=== PATIENT | male | born 1990 | race Caucasian/White ===

== ENCOUNTER 2017-04-21 10:59 | Emergency (ER) | payer OTHER ==
[2017-04-21 11:07] VITALS: RESP 15; TEMP 97.5
--- NOTE | 2017-04-21 11:14 | EDPHY ---
H & P Stated Complaint: skiing 2 days ago 8 ft jump landed flat pain r heel Time Seen by Provider: 04/21/17 11:13 HPI/ROS: HPI: This is a 26-year-old male presents with Chief Complaint: skiing 2 days ago 8 ft jump landed flat pain r heel Location: Right heel Quality: Injury Duration: 2 days ago Signs and Symptoms: No bleeding, no radiation, no numbness, no weakness, no tingling, no incontinence, no decreased range of motion, no swelling, + pain Timing: Sudden, worse with weight-bearing Severity: Mild Context: Patient is generally healthy, was skiing in [place], [place] last week when he went off a jump and landed directly on the right heel taking the majority of the force. He felt immediate, constant pain that gradually wore off throughout the day. He was able to continue skiing for the remaining 4 hr. Who reports that he has noticed over the last 1-2 days, mild discomfort that is nonradiating in nature when he puts weight directly on his right heel. Denies any paresthesias/swelling/skin color changes. Patient asking for an x- ray to rule out heel fracture. He is not taking any [id number] medications or applied ice. Modifying Factors: None Comment: ROS: see HPI Constitutional: No fever, no chills, no weight loss Eyes: No blurred vision Respiratory: No shortness of breath, no cough Cardiovascular: No chest pain Gastrointestinal: No nausea, no vomiting no diarrhea Genitourinary: No dysuria Extremities: No myalgias Neurologic: No weakness, no numbness Skin: No rashes Hematologic: No bruising, no bleeding MEDICAL/SURGICAL/SOCIAL HISTORY: Medical history: antithrombin 3 blood disorder/psoriasis Surgical history: Denies Social history: Worse as second grade teacher. CONSTITUTIONAL: awake and alert, no obvious distress HEENT: Atraumatic and normocephalic, PERRL, EOMI. Tympanic membranes clear. Oropharynx clear, no exudate and moist pink mucosa. Airway patent. No lymphadenopathy. No meningismus. Cardiovascular: Normal S1/S2, regular rate, regular rhythm, without murmur rub or gallop. PULMONARY/CHEST: Symmetrical and nontender. Clear to auscultation bilaterally. Good air movement. No accessory muscle usage. ABDOMEN: Soft, nondistended, nontender, no rebound, no guarding, no peritoneal signs, no masses or organomegaly. No CVAT. EXTREMITIES: 2/2 DP and PT pulses, strength 5/5, right Ankle: Plantar flexion to 50, dorsiflexion to 20. Foot inversion to 35 degree. No tenderness/ swelling Anterior talofibular ligament. No tenderness/swelling Calcaneofibular ligament, no tenderness/swelling posterior talofibular ligament, no tenderness/ swelling posterior inferior tibiofibular ligament. Achilles tendon intact. Right Calcaneus; + pinpoint tenderness with palpation directly on the lateral aspect. No effusion/ecchymosis/swelling appreciated. no deformities, no clubbing, no cyanosis or edema. NEUROLOGICAL: no focal neuro deficits. GCS 15. SKIN: Warm and dry, no erythema. no rash. Good capillary refill. Source: Patient Exam Limitations: No limitations - Personal History Current Tetanus/Diphtheria Vaccine: Yes - Medical/Surgical History Hx Asthma: No Hx Chronic Respiratory Disease: No Hx Diabetes: No Hx Cardiac Disease: No Hx Renal Disease: No Hx Cirrhosis: No Hx Alcoholism: No Hx HIV/AIDS: No Hx Splenectomy or Spleen Trauma: No Other PMH: antithrombin 3 blood disorder/psoriasis - Social History Smoking Status: Never smoked Constitutional: Initial Vital Signs Temperature (C) 36.4 C 04/21/17 11:04 Heart Rate 94 04/21/17 11:04 Respiratory Rate 15 04/21/17 11:04 Blood Pressure 104/74 04/21/17 11:04 O2 Sat (%) 97 04/21/17 11:04 O2 Delivery Mode Room Air Allergies/Adverse Reactions: Penicillins Allergy (Verified 04/21/17 11:03) Home Medications: Medication Instructions Recorded ELETRIPTAN HYDROBROMIDE [RELPAX] 40 mg PO ONCE 03/23/11 LORAZEPAM 5 mg PO PRN 03/23/11 Enbrel 04/21/17 Medical Decision Making - Diagnostics Imaging Results: Imaging Impressions Foot X-Ray 04/21/17 11:13 Impression: 1. No calcaneal spur. 2. No definite fracture of the right foot. 3. Benign bone island second toe proximal phalanx. ED Course/Re-evaluation: Right foot x-ray and shows no signs of fracture No signs of neurovascular compromise/tenting of skin/compartment syndrome/ extremities and joints examined above and below area of concern and are neurovascularly intact. Given crutches and toe-touch weight-bearing status and slowly advance as tolerated. Rice therapy, supportive care, shoe insert. This patient was seen under the supervision of my secondary supervising physician. I evaluated care for this patient independently. Discussed this patient with Dr. Valencia who did not see the patient. Differential Diagnosis: Differential diagnosis includes but is not limited to calcaneus bursitis, calcaneal fracture, talus fracture. Departure - Departure Disposition: Home, Routine, Self-Care Clinical Impression: Injury of right heel Qualifiers: Encounter type: initial encounter Qualified Code(s): S99.921A - Unspecified injury of right foot, initial encounter Condition: Good Instructions: Calcaneal Fracture (ED) Additional Instructions: Use crutches to aid ambulation; start with toe-touch weight-bearing and slowly advance as tolerated. Take Tylenol 650 mg every 4 hours and/or Ibuprofen 600 mg every 8 hours with food as needed for pain. Apply ice for 30 minutes at a time; 2-3 times per day for the next 1-2 days. Follow up with Podiatry in 7-10 days if symptoms persist or worsen at which time they will evaluate and recommend with you if conservative management versus adjuvant therapy is indicated. The x-rays obtained in the emergency department today demonstrate no evidence of an obvious fracture. Sometimes fractures are not obvious on the initial set of x-rays performed in the ED. For this reason, you should have repeat x-rays performed in 7-10 days if you are having any pain exclude the possibility of an occult fracture. Referrals: Lamonte Arenas MD [Doctor of Podiatric Medicine] - As per Instructions
[2017-04-21 12:01] VITALS: BP 115/71; PULSE 71; O2SAT 96
== END 2017-04-21 12:00 | disposition home or self-care (01) ==
DX: S99.921A Unspecified injury of right foot, initial encounter (principal); V00.328A Other snow-ski accident, initial encounter; Y99.8 Other external cause status; Y93.23 Activity, snow (alpine) (downhill) skiing, snowboarding, sledding, tobogganing and snow tubing